=== PATIENT | female | born 1980 | race Caucasian/White ===

== ENCOUNTER 2019-06-11 18:01 | Emergency (ER) | payer BC ==
--- NOTE | 2019-06-11 18:29 | EDM.PDOC ---
ED HPI GENERAL MEDICAL PROBLEM - General Chief Complaint: Respiratory Problem Stated Complaint: COUGH SYMPTOMS Time Seen by Provider: 06/11/19 18:19 Source of Information: Reports: Patient History Limitations: Reports: No Limitations - History of Present Illness INITIAL COMMENTS - FREE TEXT/NARRATIVE: Was treated with Augmentin for sinusitis nearly one month ago. Sinuses improve but extreme abdominal discomfort GI upset secondary. Return from trip to [place] sinus occurrence seemingly recurred and has no caused irritation to the chest inducing cough with chest wall pleuritic type discomfort of the right side. Sinuses themselves or chronic recurrence and is scheduled to see ENT in the upcoming month having been awaiting an appointment for the past 4 weeks and scheduling. Onset: Gradual Onset Date: 06/08/19 Duration: Day(s):, Getting Worse Location: Reports: Chest Quality: Reports: Burning, Sharp Severity: Moderate Improves with: Reports: None Worsens with: Reports: Other (Cough) Context: Reports: Other Associated Symptoms: Reports: Cough, Fever/Chills - Related Data Allergies Allergy/AdvReac Type Severity Reaction Status Date / Time sulfamethoxazole Allergy Rash Verified 06/11/19 18:35 [From Bactrim] trimethoprim [From Bactrim] Allergy Rash Verified 06/11/19 18:35 Home Meds: Home Meds Albuterol/Ipratropium [Combivent Respimat] 4 gm IH Q6HR 15 Days #1 aer.w.adap [Rx] Azithromycin [Zithromax] 250 mg PO DAILY 4 Days #4 tab 06/11/19 [Rx] Cefdinir [Omnicef] 300 mg PO BID 7 Days #14 cap 06/11/19 [Rx] Gabapentin [Neurontin] 200 mg PO TID 06/11/19 [History] Indomethacin 25 mg PO TID 10 Days #30 capsule 06/11/19 [Rx] Spironolactone [Aldactone] 100 mg PO DAILY 06/11/19 [History] traZODone HCl [Trazodone HCl] 25 mg PO BEDTIME 06/11/19 [History] Past Medical History HEENT History: Reports: Impaired Vision Cardiovascular History: Reports: None Respiratory History: Reports: Asthma (Childhood grew after leaving the farm) Gastrointestinal History: Reports: None Genitourinary History: Reports: None Musculoskeletal History: Reports: None Neurological History: Reports: Headaches, Chronic, Other (See Below) (Chronic back pain) Psychiatric History: Reports: None Endocrine/Metabolic History: Reports: None Hematologic History: Reports: None Immunologic History: Reports: None - Past Surgical History Head Surgeries/Procedures: Reports: None HEENT Surgical History: Reports: Naso-Sinus Surgery Cardiovascular Surgical History: Reports: None Respiratory Surgical History: Reports: None GI Surgical History: Reports: Appendectomy, Cholecystectomy Female Surgical History: Reports: Endometrial Ablation, Hysterectomy, Oophorectomy Social & Family History - Family History Family Medical History: Noncontributory ED ROS GENERAL - Review of Systems Review Of Systems: See Below Constitutional: Reports: Fever, Chills HEENT: Reports: Sinus Problem Respiratory: Reports: Pleuritic Chest Pain, Cough Cardiovascular: Denies: Chest Pain, Dyspnea on Exertion Endocrine: Reports: No Symptoms GI/Abdominal: Reports: No Symptoms : Reports: No Symptoms Musculoskeletal: Reports: No Symptoms Skin: Reports: No Symptoms Neurological: Reports: No Symptoms Psychiatric: Reports: No Symptoms Hematologic/Lymphatic: Reports: No Symptoms Immunologic: Reports: No Symptoms ED EXAM, GENERAL - Physical Exam Exam: See Below Exam Limited By: No Limitations General Appearance: Alert Ears: Normal External Exam, Normal Canal, Hearing Grossly Normal, Normal TMs Nose: Normal Inspection, Normal Mucosa, No Blood Throat/Mouth: Normal Inspection, Normal Lips, Normal Teeth, Normal Gums, Normal Oropharynx, Normal Voice, No Airway Compromise Head: Atraumatic, Normocephalic Neck: Normal Inspection Respiratory/Chest: No Respiratory Distress, Normal Breath Sounds, Crackles, Rhonchi, Wheezing (Mild expiratory wheezes deep breath induces significant cough. Pain to the right side chest wall to touch). No: Lungs Clear, Chest Non- Tender Cardiovascular: Normal Peripheral Pulses, Regular Rate, Rhythm, No Edema, No Gallop, No JVD, No Murmur, No Rub GI/Abdominal: Normal Bowel Sounds, Soft (Female) Exam: Deferred Rectal (Female) Exam: Deferred Back Exam: Full Range of Motion Extremities: Normal Inspection, Normal Range of Motion Neurological: Alert, Oriented, CN II-XII Intact, Normal Cognition, Normal Gait, Normal Reflexes, No Motor/Sensory Deficits Psychiatric: Normal Affect, Normal Mood Skin Exam: Warm, Dry, Intact, Normal Color, No Rash Departure - Departure Time of Disposition: 19:33 Disposition: Home, Self-Care 01 Condition: Good Clinical Impression: Sinusitis, Pneumonia - Discharge Information *PRESCRIPTION DRUG MONITORING PROGRAM REVIEWED*: Not Applicable *COPY OF PRESCRIPTION DRUG MONITORING REPORT IN PATIENT GREGORIO: Not Applicable Referrals: Cara Justin PA-C [Primary Care Provider] - Forms: ED Department Discharge Additional Instructions: You need to increase your fluids specifically water throughout the day. Cefdinir (Omnicef) will be 300 mg twice daily for 7 days. Azithromycin 250 mg once daily for 4 more days. Inhaler Combivent will be used 3 to 4 times daily Take Ibuprofen for chest wall pain until Indomethacin is obtained You need to contact provider for update on ENT appointment and to schedule re- check in 10 to 14 days. You need to be seen sooner if not improving, or if getting worse. - Problem List & Annotations (1) Cough SNOMED Code(s): 69063990 Code(s): R05 - COUGH Status: Acute Priority: High Current Visit: Yes (2) Sinusitis SNOMED Code(s): 40570331 Code(s): J32.9 - CHRONIC SINUSITIS, UNSPECIFIED Status: Chronic Priority : High Current Visit: Yes Qualifiers: Chronicity: chronic (3) Pleurisy SNOMED Code(s): 467002272 Code(s): R09.1 - PLEURISY Status: Acute Priority: Medium Current Visit : Yes (4) Pneumonia SNOMED Code(s): 233028386 Code(s): J18.9 - PNEUMONIA, UNSPECIFIED ORGANISM Status: Acute Priority: High Current Visit: Yes Qualifiers: Pneumonia type: due to unspecified organism Laterality: right Lung location: lower lobe of lung Qualified Code(s): J18.1 - Lobar pneumonia, unspecified organism - Problem List Review Problem List Initiated/Reviewed/Updated: Yes - Assessment/Plan Plan: You need to increase your fluids specifically water throughout the day. Cefdinir (Omnicef) will be 300 mg twice daily for 7 days. Azithromycin 250 mg once daily for 4 more days. Inhaler Combivent will be used 3 to 4 times daily Take Ibuprofen for chest wall pain until Indomethacin is obtained. You need to contact provider for update on ENT appointment and to schedule re- check in 10 to 14 days. You need to be seen sooner if not improving, or if getting worse.
[2019-06-11 19:00] LABS: ANION GAP 14.6 mmol/L (5-15); CHLORIDE,CL 106 mmol/L (98-115); SODIUM,NA 141 mmol/L (136-145)
[2019-06-11] MEDS ORDERED: Albuterol/Ipratropium 3.0-0.5 MG/3 ML Neb Soln NEB ONE (19:00)
[2019-06-11] MEDS ORDERED: Azithromycin 250 MG Tab PO ONE (19:22)
[2019-06-11] MEDS ORDERED: Cefdinir 300 MG Cap PO ONE (19:23)
--- NOTE | 2019-06-12 07:25 | CR ---
[id number] RAD/RAD Chest PA And Lateral EXAM: FRONTAL AND LATERAL CHEST INDICATION: Cough. COMPARISON: None. DISCUSSION: Pectus excavatum. Hyperinflation. No acute infiltrates. IMPRESSION: 1. Hyperinflation could be seen with chronic obstructive pulmonary disease or asthma. 2. No acute infiltrates. Yoni Dunne MD 06/12/19 0724 Thank you for allowing us to participate in the care of your patient.
== END 2019-06-11 19:45 | disposition home or self-care (01) ==
LOC: KA.ED 18:01
DX: J32.9 Chronic sinusitis, unspecified (principal); J18.9 Pneumonia, unspecified organism; J45.909 Unspecified asthma, uncomplicated; Z88.1 Allergy status to other antibiotic agents; Z79.899 Other long term (current) drug therapy
CPT/HCPCS: 36415; 71046; 80053; 83605; 85025; 94640; 99283; A9270; J7620-GY